=== PATIENT | female | born 1960 | race African-American/Black ===

== ENCOUNTER 2017-11-22 22:51 | Emergency (ER) | payer SELFPAY ==
[~2017-11-22] VITALS: Ht 162.6 cm; Wt 122.7 kg
[2017-11-22 23:09] VITALS: Ht 162.6 cm; Wt 122.7 kg
[2017-11-22] MEDS ORDERED: [UNRECOGNIZED DRUG - REMARK] (23:10)
[2017-11-22] MEDS ORDERED: ESTRACE1 MG PO (23:11)
[2017-11-22] MEDS ORDERED: ATIVAN1 MG PO (23:35)
[2017-11-23 00:24] LABS: BASOPHILS 0.1 % (0-2); EOSINOPHILS 0.6 % (0-7); HEMATOCRIT 32.4 % (36.0-48.0); HEMOGLOBIN 10.8 g/dL (12-16); IMMATURE GRANULOCYTES 0.2 % (0-5); LYMPHOCYTES 21.3 % (15-50); MCH 31.5 pg (26.0-34.0); MCHC 33.3 g/dL (31.0-37.0); MCV 94.5 fL (80.0-100.0); MEAN PLATELET VOLUME 11.6 fL (7.4-10.4); MONOCYTES 9.3 % (2-11); NEUTROPHILS 68.5 % (40-80); PLATELET COUNT 212 10x3/uL (130-400); RBC 3.43 10x6/uL (4.00-5.40); RDW 12.7 % (11.5-14.5); WBC 9.4 10x3/uL (4.8-10.8)
[2017-11-23 00:36] LABS: ALBUMIN 3.8 g/dL (3.4-5.0); ALKALINE PHOSPHATASE 73 U/L (46-116); ALT (SGPT) 34 U/L (10-68); BILIRUBIN - TOTAL 0.67 mg/dL (0.2-1.3); CALC OSMOLALITY 277 mosm/kg (275-300); CALCIUM 8.8 mg/dL (8.5-10.1); CARBON DIOXIDE 26.1 mmol/L (21.0-32.0); CHLORIDE - SERUM 104 mmol/L (98-107); CREATININE - SERUM 1.2 mg/dL (0.6-1.3); GLUCOSE 103 mg/dL (74-106); POTASSIUM - SERUM 3.4 mmol/L (3.5-5.1); PROTEIN - SERUM 7.9 g/dL (6.4-8.2); SODIUM 139 mmol/L (136-145); UREA NITROGEN 12 mg/dL (7-18); eGFR NON AFRICAN AMERICAN 49 mL/min (90-120)
[2017-11-23 00:45] LABS: CKMB 1.4 U/L (0.0-3.6); CREATINE KINASE 168 UL (21-215); TROPONIN-I < 0.017 ng/mL (0.000-0.060)
[2017-11-23 01:05] VITALS: BP 155/70
== END 2017-11-23 01:05 | disposition home or self-care (01) ==
LOC: D.ER 22:51
PROVIDERS: Family Medicine
DX: F41.9 Anxiety disorder, unspecified (principal); R07.9 Chest pain, unspecified; R11.0 Nausea; I10 Essential (primary) hypertension; F17.200 Nicotine dependence, unspecified, uncomplicated